=== PATIENT | female | born 1995 | race Caucasian/White ===

== ENCOUNTER 2019-09-09 20:47 | Emergency (ER) | payer MEDICAID, SELFPAY | END 2019-09-09 22:00 | disposition home or self-care (01) | LOC: ERS 20:47 | DX: O99.512 Diseases of the respiratory system complicating pregnancy, second trimester (principal); J06.9 Acute upper respiratory infection, unspecified; Z3A.23 23 weeks gestation of pregnancy | CPT/HCPCS: 99282 ==

== ENCOUNTER 2019-12-10 04:32 | Day surgery (SDC) | payer SELFPAY ==
[2019-12-10 05:00] VITALS: BP 117/58; TEMP 98.9; BMI 31.1
--- NOTE | 2019-12-10 05:47 | PDOC.LDHP ---
Labor and Delivery H&P Chief complaint: contractions HPI: 23yo @ 36.1 wks presents to L&D with complaints of contractions. States this started this morning at 0300 and woke her up from sleep. States at home they were occurring q2-5 minutes. Denies any LOF, vaginal bleeding/discharge, decreased FM, dysuria. All previous deliveries were vaginal and uncomplicated. Denies any complications with current . Current gestational age (weeks): 36 (1) Grav: 3 Para: 2 OB History Details: 2 previous uncomplicated Current complications: none Current medications: pre- vitamins Previous surgical history: none Allergies/Adverse Reactions: Allergies Allergy/AdvReac Type Severity Reaction Status Date / Time No Known Allergies Allergy Verified 12/10/19 05:01 Social history: none - Physical Exam Vital signs reviewed and normal: yes General: NAD Heart: RRR Lungs: nonlabored breathing Abdomen: gravid Extremeties: no edema FHT: category 1, variability present [place] contractions every: 2 - Vaginal Exam cm dilated: 1 Effacement: 50% Station: -3 - OB Labs Blood type: O RH: positive - Assessment Gestation with Regular Contractions - Plan -: -Came in at /-3 francisco regularly -1L LR bolus ordered -Vitals: WNL -Continuous toco and monitoring ordered Plan: Will run IVF and monitor toco for contraction regularity and plan to recheck pt's cervix in a couple hours to see if she made change. If pt not making change can be deemed that pt is not in labor and she will be okay to DC home with appropriate return precautions. The above findings and plan were discussed with my attending, Dr. Catherine Rey , who is in agreement. Max Miller PGY2 Addendum - Attending - Attending Attestation Date/Time: 12/13/19 0903 I personally evaluated the patient and discussed the management with Dr. Miller. I agree with the History, Examination, Assessment and Plan documented above.
[2019-12-10] MEDS ORDERED: Lactated Ringer's 1,000 ML IV SCH (06:15)
--- NOTE | 2019-12-10 09:58 | PDOC.BPN ---
- Brief Progress Note Reassessed patient w/ Dr. Liang. S: 23 yo at 36.1 wga by LMP/11.3 wk sono She is feeling pain. She is hungry. Would like to eat. Upon further history, pt has not had sexual intercourse in the past several days. Has appt w/ PNC tomorrow. O: tracing has had sleep cycles no more than 30 minutes at a time. No decels most recently while on monitor. Ctx q2-4 min. Cervical recheck is 1/thick/high. Unchanged. A/P: Pt is s/p 2 L IVF. Will give morphine, phenergan, and food. Goal is to help pt be comfortable and hopefully discharge home. She may be in latent labor. Will collect GBS swab here and notify PCP/PNC.
[2019-12-10] MEDS ORDERED: Morphine 4 MG/ML VIAL IM SCH (10:00)
[2019-12-10] MEDS ORDERED: Promethazine HCl 25 MG/ML VIAL IM SCH (10:00)
[2019-12-10] MEDS ORDERED: Morphine 2 MG/ML SYRINGE SLOW IVP SCH (10:00)
[2019-12-10] MEDS ORDERED: Morphine 4 MG/ML VIAL IV SCH (10:15)
[2019-12-10 11:04] LABS: Bacteria/HPF None Seen HPF (None Seen); Bilirubin Negative (Negative); Blood, Urine Negative (Negative); Clarity Clear (Clear); Glucose, Urine (Dipstick) Normal (Negative); Leukocyte Negative Leu/uL (Negative); Nitrite Negative (Negative); Protein, Urine (Dipstick) Negative (Neg-Trace); RBC/HPF 0-3 HPF (0-3); Squamous Epithelial 0-3 HPF (0-3); Urobilinogen Normal mg/dL (Less than 2); WBC/HPF 0-3 HPF (0-3)
== END 2019-12-10 12:05 | disposition home or self-care (01) ==
LOC: L&D/OP 04:32
PROVIDERS: ATTEND Obstetrics & Gynecology
DX: O47.03 False labor before 37 completed weeks of gestation, third trimester (principal); Z3A.36 36 weeks gestation of pregnancy
CPT/HCPCS: 81001; 87081; 96360; 96361; 96372; 96375; 99285; J2270; J2550

== ENCOUNTER 2019-12-24 05:37 | Day surgery (SDC) | payer OTHER ==
--- NOTE | 2019-12-24 07:39 | PDOC.BPN ---
- Brief Progress Note OBGYN ATTENDING TRIAGE NOTE Patient seen by me at bedside. HX reviewed 24 yo with 2 term SVDs at 38 weeks here with possible CTX. Was seen here 2 weeks ago for similar discomforts. CX is 2cm. Normotensive and afebrile FHTs reactive (Cat 1) CTXs on toco are every 2-3 minutes Assessment: latent labor at early term Plan: recheck in 2 hrs pain meds admit if progresses I did discuss with her our limitations for elective IOL under 39 weeks. Patient understood.
[2019-12-24] MEDS ORDERED: Butorphanol Tartrate 1 MG/ML VIAL ONE (08:59)
[2019-12-24] MEDS: Butorphanol Tartrate 1 MG/ML VIAL SLOW IVP PRN ×2 (09:29→11:56)
[2019-12-24] MEDS ORDERED: hydrALAZINE 20 MG/ML VIAL SLOW IVP PRN (09:38)
[2019-12-24] MEDS ORDERED: Lactated Ringer's 1,000 ML IV SCH (09:45)
--- NOTE | 2019-12-24 09:52 | PDOC.FPROB ---
FMR OB H&P: HPI - History of Present Illness Chief Complaint: contractions History of Present Illness: Patient is a Portuguese speaking 24f @ 38.1 wks here for increased contractions. She reports that contractions started at 0000 overnight and were occurring approximately q30 mins and at 0300 increased to every 15 mins. She was seen ~2 wks ago for a similar complaint and was checked, given IV fluids, and determined to not be in labor. She denies vaginal bleeding, LOF, and discharge. She endorses FM similar to what it has been. She denies fever, abd pain, and excessive edema. Primary Care Physician: [facility]MR OB H&P: Current - Care : 3 Para: 2001 Gestational age: 38.1 Due date: 01/06/20 Course/Complications: GBS negative FMR OB H&P: History - Past Medical History PMH: noncontributory - OB History OB History: 2 term in previous FMR OB H&P: Medications - Current Home Medications: Medication Instructions Recorded Confirmed Type Vit 33/Iron/Folic/Dha 1 tab PO DAILY 08/24/16 12/24/19 History [Select-OB + DHA Pack] Allergies/Adverse Reactions: Allergies Allergy/AdvReac Type Severity Reaction Status Date / Time No Known Allergies Allergy Verified 12/10/19 05:01 FMR OB H&P: ROS - Review of Systems General: denies: fever/chills, recent trauma Eyes: denies: vision changes ENT: denies: nasal congestion, rhinorrhea Cardiovascular: denies: chest pain, palpitation, edema Respiratory: denies: cough, congestion Gastrointestinal: reports: abdominal pain. denies: cramping Genitourinary (Female): reports: contractions, vaginal pressure. denies: dysuria, vaginal discharge Musculoskeletal: denies: pain Neurologic: denies: syncope, weakness, headache Integumentary: denies: itching, rash Psychological: denies: depression, anxiety FMR OB H&P: Vital Signs - Heart Tones Baseline: 125 Variability: moderate Acceleration: present Deceleration: absent Category: category 1 [place] contractions every: 2-3 minutes FMR OB H&P: Physical Exam - Physical Exam General: awake, alert and oriented Deviation from normal: appears uncomfortable during ctx HEENT: MMM, conjunctiva clear Neck: supple, FROM Heart: RRR, normal S1/S2 General: CTAB, no respiratory distress Abdomen: gravid, bowel sound present Musculoskeletal: pulses present Neurological: no focal deficit Psychiatric: intact recent and remote memory, normal mood and affect - Pelvic Exam SVE: /-2 FMR OB H&P: A/P Disposition: Home pending rpt SVE Discussion: Date/Time: 12/24/19 0946 24F @ 38.1 wks here for increased contractions. Labor r/o: - SVE /-2 - regular, painful ctx q 2-4 minutes on monitor - FHT reactive, Cat 1 - uncomplicated prior pregnancies, no PNC records for this at this time - GBS - - monitor patient and FHT - Recheck SVE in 2 hrs, if significant change, admit for labor This H&P was discussed with Dr. Neil and Dr. Arguello who agree with the above documentation and plan.
--- NOTE | 2019-12-24 10:08 | PDOC.LDPN ---
Labor & Delivery Progress Note - Subjective Subjective: comfortable, painful contractions - Objective Vital signs reviewed and normal: yes General: NAD Uterine fundus: non tender SVE: /-2 FHT: category 1, variability present [place] contractions every: 5-6 mins -: 24F @ 38.1 wks here for increased contractions. Labor r/o: - SVE /- 0910 from 0600 - regular, painful ctx q 5-6 minutes on monitor - FHT reactive, Cat 1 - uncomplicated prior pregnancies, no PNC records for this at this time - GBS - - monitor patient and FHT - IVF LR bolus - Stadol PRN for pain - Monitor patient and FHT, recheck in 2 hours because cervical change is minimal and checks done by different examiners - Explained to patient that since she is <39wks, we cannot induce her. We will continue to monitor to ensure she has adequate change for labor to proceed spontaneously. Discussed w/ Dr. Neil and Dr. Rey
[2019-12-24 11:06] VITALS: BMI 27.4
[2019-12-24] MEDS ORDERED: Butorphanol Tartrate 1 MG/ML VIAL SLOW IVP PRN (11:56)
[2019-12-24] MEDS ORDERED: Acetaminophen 500 MG TAB PO SCH (12:00)
--- NOTE | 2019-12-24 12:18 | PDOC.LDPN ---
Labor & Delivery Progress Note - Subjective Subjective: painful contractions - Objective Vital signs reviewed and normal: yes General: NAD Uterine fundus: non tender Dilation: 3 Effacement: 75% Station: -2 FHT: category 1, variability present [place] contractions every: 5-6 min Other exam findings: Patient is tearful upon hearing news that she cannot be induced yet Plan: other (Discharge home) -: at 38.1 weeks. Cervical exam unchanged on 3 hour recheck. Still /- 2. Patient is scheduled for induction on 12/31/19. She is tearful and requests to be induced today. She was counselled on the need to wait for induction until 39 weeks due to lack of medical necessity and associated risks of induction. Patient was given Stadol but complains that the contractions are still painful. She was counselled on pain management. Labor precautions given. Stable for discharge home. Addendum - Attending - Attending Attestation Date/Time: 12/24/19 6104 I discussed the management with Dr. Lew. I agree with the History, Examination, Assessment and Plan documented above with any addition or exceptions noted below. Patient unchanged over 6 hours of observation. Ctx less frequent and painful. D/c home with precautions.
== END 2019-12-24 12:10 | disposition home or self-care (01) ==
LOC: L&D/OP 05:37
PROVIDERS: ATTEND Family Medicine
DX: O47.1 False labor at or after 37 completed weeks of gestation (principal); Z3A.38 38 weeks gestation of pregnancy
CPT/HCPCS: J0595

== ENCOUNTER 2019-12-24 14:45 | Inpatient (IN) | payer MEDICAID, OTHER, SELFPAY ==
[~2019-12-24 14:45] MED LIST: Butorphanol Tartrate 1 MG/ML VIAL SLOW IVP PRN; Lactated Ringer's 1,000 ML IV SCH; hydrALAZINE 20 MG/ML VIAL SLOW IVP PRN
[2019-12-24] MEDS ORDERED: Benzocaine-Menthol 82.5 ML CAN TOP PRN (14:47)
[2019-12-24] MEDS ORDERED: Promethazine HCl 25 MG/ML VIAL IM PRN (14:47)
[2019-12-24] MEDS ORDERED: HYDROcodone/Acetaminophen 5/325 mg Tablet PO PRN (14:47)
[2019-12-24] MEDS ORDERED: Ondansetron PF 4 MG/2 ML Vial IVP PRN (14:47)
[2019-12-24] MEDS ORDERED: Milk Of Magnesia 30 ML UDCUP PO PRN (14:47)
[2019-12-24] MEDS ORDERED: Lanolin Ointment 7 GM TUBE TOP PRN (14:47)
[2019-12-24] MEDS ORDERED: diphenhydrAMINE 25 MG CAP PO PRN (14:47)
[2019-12-24] MEDS ORDERED: Misoprostol 200 MCG TAB VAG PRN (14:47)
[2019-12-24] MEDS ORDERED: Preparation H Ointment 28 GM TUBE PR PRN (14:47)
[2019-12-24] MEDS ORDERED: Methylergonovine 0.2 MG/ML VIAL IM PRN (14:47)
[2019-12-24] MEDS ORDERED: Bisacodyl 10 MG SUPP PR PRN (14:47)
[2019-12-24] MEDS ORDERED: hydrALAZINE 20 MG/ML VIAL SLOW IVP PRN (14:48)
[2019-12-24] MEDS ORDERED: Acetaminophen 500 MG TAB PO PRN (14:48)
--- NOTE | 2019-12-24 14:55 | PDOC.OPDEL ---
OB Operative/Delivery Note Delivery Dr/Surgeon: Dr. Diogo Lane Pre-Delivery Diagnosis: active labor Procedure/Post Delivery Dx: spontaneous vaginal delivery Weeks gestation: 38 (38.1) Anesthesia: none - Additional Findings/Plan Placenta delivered: spontaneous Repaired Obstetrical Laceration: 1st degree (hemostatic) Estimated blood loss: 300mL Compilations/Other Findings: Delivering Physician: Dr. Diogo Lane MD Attending: Dr. Diogo Lane MD Procedure: Spontaneous Vaginal Delivery Anesthesia: none EBL: 300ml Pre-op Diagnosis: 1. Term intrauterine in labor Post-op Diagnosis: 1. Term intrauterine , delivered Indications: A 24y/o female who presented to the ER in active labor & delivered precipitously before arriving up to L&D. Delivery Note: This is 24yo F @ 38.1 wks who delivered a viable F infant at 1424. Following an uneventful antepartum course, a vigorous female was delivered precipitously in the ER before Obstetrical providers arrived. Cord clamped and cut and cord blood collected. Placenta delivered intact in the [place] with a 3 vessel cord noted. Fundal massage was performed and the fundus was firm. The cervix and vagina were inspected and a small hemostatic 1st degree perineal laceration was noted. Infant went to nursery in good condition for routine care. Apgars were 7/8 at 1 & 5 minutes, respectively. Patient tolerated delivery well and went to after routine recovery/ care. Post delivery plan: routine recovery
--- NOTE | 2019-12-24 14:59 | PDOC.LDHP ---
Labor and Delivery H&P Chief complaint: contractions HPI: 24YO G3P now P3003 @ 38.1 wks who was brought up from the ED after a precipitous delivery of a term female . Of note, patient was seen on L&D early this AM for contractions but was sent home after ~5 hours of monitoring with no cervical change. Reports her water broke ~ 5 minutes before she got to the ER this afternoon. Denies any fever/chills, N/V, or lightheadedness. Has some mild abdominal pain. Current gestational age (weeks): 38 (38.1) Grav: 3 Para: 2 (2001) OB History Details: 2 term NSVDs Current complications: none Past Medical History: none Current medications: pre-antonella vitamins Previous surgical history: none Allergies/Adverse Reactions: Allergies Allergy/AdvReac Type Severity Reaction Status Date / Time No Known Allergies Allergy Verified 12/24/19 15:32 Social history: none - Physical Exam Vital signs reviewed and normal: yes General: NAD Heart: RRR Lungs: nonlabored breathing Abdomen: NTTP Extremeties: no edema - OB Labs Blood type: O RH: positive GBS: negative - Assessment L&D Assessment: term patient in labor - Plan Plan: admit to L&D -: 24YO now P3003 @ 38.1 wks here after a precipitous in the ER. s/p term w/o complications: - Patient delivered precipitously in the ER without any OB provider present. No lacs or excessive bleeding noted. Mom & infant stable. - uncomplicated prior pregnancies, no PNC records for this at this time - GBS negative & O positive - Will admit to L&D with transfer to PP for routine recovery. Addendum - Attending - Attending Attestation Date/Time: 12/24/19 0363 I personally evaluated the patient and discussed the management with Dr. Garber. I agree with the History, Examination, Assessment and Plan documented above.
[2019-12-24] MEDS: NS / Oxytocin 40 units/1000ml 1,000 ML IV SCH ×2 (15:00→15:38)
[2019-12-24 15:08] LABS: Hemoglobin 12.6 g/dL (12.0-16.0); Mean Corpuscular HGB CONC 33.4 g/dL (32.0-36.0); Mean Corpuscular Hemoglobin 30.8 pg (27.0-31.0); Mean Corpuscular Volume 92.2 fL (78.0-98.0); RBC Distribution Width 12.2 % (11.5-14.5); White Blood Cell (WBC) Count 10.7 thou/uL (4.8-10.8)
[2019-12-24 15:18] LABS: Mean Platelet Volume 11.9 fL (7.4-10.4); Platelet Count 130 thou/uL (130-400)
[2019-12-24 15:32] LABS: Syphilis Antibody Nonreactive (Nonreactive); Syphilis Antibody Index 0.07 S/CO (<1.00 Non-Reactive)
[2019-12-24 15:33] LABS: HBSAg Index 0.13 S/CO (0-0.99); Hep B Surf Ag Non-Reactive S/CO (NonReactive)
[2019-12-24 17:42] VITALS: BMI 32.2
[2019-12-24] MEDS: Ferrous Sulfate 325 MG TAB PO SCH (17:58)
[2019-12-24] MEDS: Ibuprofen 800 MG TAB PO SCH (20:16)
[2019-12-24] MEDS: HYDROcodone/Acetaminophen 5/325 mg Tablet PO PRN (20:17)
[2019-12-25] MEDS: HYDROcodone/Acetaminophen 5/325 mg Tablet PO PRN (04:43)
[2019-12-25] MEDS: Docusate Calcium (SURFAK) 240 MG CAP PO SCH ×2 (04:43→08:56)
[2019-12-25] MEDS: Ibuprofen 800 MG TAB PO SCH ×2 (04:44→13:41)
--- NOTE | 2019-12-25 06:31 | PDOC.PP ---
Post Progress Note Subjective: Pt is a 24 yo G3 now P3 who delivered a TAGA F at 38.1 wks via in the ED. Today is PP day 1. She states she is voiding, getting up and walking, her abdominal pain has resolved. She feels she still has some swelling of her feet and ankles. She is having minimal vaginal bleeding. She would like information on a hose suspender cutter and someone to perform her 's vasectomy. PO intake tolerated: yes Flatus: yes Ambulation: yes Vital Signs (12 hours) Temp Pulse Resp BP Pulse Ox 12/25/19 04:30 98.4 F 71 18 99/56 L 12/24/19 20:00 98.6 F 71 18 99/57 L 99 Weight Weight 74.843 kg - Physical Examination General: NAD Cardiovascular: RRR Respiratory: clear to auscultation bilaterally, non-labored breathing Abdominal: + bowel sounds, appropriately TTP Skin: no rash Neurological: no gross focal deficits Psychiatric: normal affect Result Diagrams: 12/24/19 14:34 Additional Labs: Post Labs Blood Type O POSITIVE 12/24/19 15:37 Hep Bs Antigen Non-Reactive S/CO (NonReactive) 12/24/19 14:34 - Assessment/Plan 24YO now P3003 @ 38.1 wks here after a precipitous in the ER. s/p term w/o complications: - Patient delivered precipitously in the ER without any OB provider present. No lacs or excessive bleeding noted. - uncomplicated prior pregnancies - GBS negative & O positive - no PNC records for this at this time, will call PNC today to get them sent over - Once records are obtained and baby's 24hr bili is normal, plan to discharge home today
[2019-12-25] MEDS: Ferrous Sulfate 325 MG TAB PO SCH ×2 (08:56→13:42)
[2019-12-25] MEDS ORDERED: Measles/Mumps/Rubella 10 MCG/0.5 ML VIAL SC ONE (09:00)
[2019-12-25] MEDS ORDERED: Varicella virus, LIVE 0.5 ML VIAL SC ONE (09:00)
[2019-12-25] MEDS ORDERED: Prenatal Vitamin 1 TAB PO SCH (09:00)
[2019-12-25] MEDS ORDERED: Adacel (T-DAP) 0.5 ML SYRINGE IM ONE (09:00)
[2019-12-25 12:13] VITALS: BP 106/59; TEMP 98.7
--- NOTE | 2019-12-25 17:55 | PDOC.EVN ---
Event Note - Event Note Event Note: OBGYN Attending note Resisent team has cleared the patient for DC to home. Also checked off by Dr Liang this AM. OK for DC to home. Vitals reviewed by me.
== END 2019-12-25 19:38 | disposition home or self-care (01) | DRG 807 ==
LOC: ERS 14:45 → L&D 14:46 → 3SW 17:21
PROVIDERS: ADMIT Obstetrics & Gynecology; ATTEND Obstetrics & Gynecology
PROC: 10E0XZZ Delivery of Products of Conception, External Approach (ICD-10-PCS; principal; 2019-12-24)
PROC: 0HQ9XZZ Repair Perineum Skin, External Approach (ICD-10-PCS; 2019-12-24)
DX: O62.3 Precipitate labor (principal); Z37.0 Single live birth; Z3A.38 38 weeks gestation of pregnancy; O70.0 First degree perineal laceration during delivery
CPT/HCPCS: 36415; 85027; 86780; 86850; 86900; 86901; 87340; J0595